=== PATIENT | male | born 1960 | race Caucasian/White ===

== ENCOUNTER → 2020-07-07 | Outpatient (CLI) | payer BC ==
[~2020-07-07] MED LIST: ALBU2.5V8 INH; ALLO300T PO; BUDE10.2 IH; IPRA3AMP29 NEB; KRIL1CAP10 PO; MULT-658 PO; ONDA4TAB7 PO; PANT40TA77 PO; PROC10TA57 PO
[2020-07-07 16:07] LABS: BASO % 1 % (0-3); EOS % 0 % (0-3); HEMATOCRIT 41.1 % (39.0-53.0); HEMOGLOBIN 13.9 g/dL (13.0-17.5); LYMPH % 16 % (24-48); MEAN CORPUSCULAR HEMOGLOBIN 31 pg (25-35); MEAN CORPUSCULAR HGB CONC 34 g/dL (31-37); MEAN CORPUSCULAR VOLUME 93 fL (79-100); MONO # 0.1 x10^3/uL (0.0-1.1); MONO % 1 % (0-9); NEUT # 4.9 x10^3/uL (1.8-7.7); NEUT % 82 % (31-73); PLATELET COUNT 127 x10^3/uL (140-400); RED BLOOD COUNT 4.41 x10^6/uL (4.30-5.70); RED CELL DISTRIBUTION WIDTH 13.7 % (11.5-14.5)
[2020-07-07 16:27] LABS: CALCIUM 8.9 mg/dL (8.5-10.1); CREATININE 0.8 mg/dL (0.7-1.3); GFR 98.9; POTASSIUM 4.7 mmol/L (3.5-5.1)
[2020-07-07 16:33] LABS: ALBUMIN 3.3 g/dL (3.4-5.0); ALBUMIN/GLOBULIN RATIO 1.2 (1.0-1.7); TOTAL BILIRUBIN 0.6 mg/dL (0.2-1.0); TOTAL PROTEIN 6.1 g/dL (6.4-8.2)
== END ==
LOC: ONCLAB 15:31
PROVIDERS: ATTEND Internal Medicine Hematology & Oncology
DX: C34.02 Malignant neoplasm of left main bronchus (principal)
CPT/HCPCS: 36415; 80053; 85025

== ENCOUNTER → 2020-07-11 | Outpatient (CLI) | payer BC ==
--- NOTE | 2020-07-11 18:41 | RAD ---
EXAM: NM PET/CT SKULL BASE TO MID THIGH EXAM DATE: 07/11/2020 INDICATION: Lung cancer, status post first cycle of chemotherapy. Initial staging. RADIOPHARMACEUTICAL: 15.28 mCi of F-18 Fluorodeoxyglucose (FDG) I.V. via the left antecubital fossa. TECHNIQUE: Patient weight: 230 pounds. Following at least four-hour fasting, the patient's blood gluc ose was 119 mg/dl. Approximately 1 hour after administration of FDG, overlapping emission scanning w as performed from the orbital meatal line through the pelvis. A low-dose CT was performed for attenu ation correction purposes and anatomic localization. Fused images of PET and CT were reviewed. Any s tandardized uptake values (SUV) reported are maximum values within a volume region of interest, expre ssed in gm/ml. COMPARISON: No relevant comparisons currently available FINDINGS: PET: In the head and neck, activity in the left nasopharynx to a max SUV of 6.55 is identified, correlatin g with asymmetric fullness in the torus tubarius. In the chest, prevascular bulky lymphadenopathy is present to max SUV of 4.47. Left hilar adenopathy to max SUV of 5.03 is also noted. It is possible a posterior left upper lobe ines ng mass abutting the mediastinum and hilum is present but lack of IV contrast and respiratory motion artifact limits assessment. A paraesophageal lymph node between the descending thoracic aorta and descending thoracic esophagus s hows FDG uptake to max SUV of 3.91 (image 155 axial series 3, image 63 image series 603). Focal uptake in the posterior right 10th rib (image 80 of series 603) to max SUV of 2.80 shows no tameka ar CT correlate of either a fracture or an osteolytic or osteoblastic lesion. Correlate for symptoms and reassessed on follow-up. In the abdomen and pelvis, uptake in the bilateral inguinal lymph nodes is present, most conspicuousl y in the superficial right inguinal lymph node (image 150 of series 603) showing a max SUV of 3.73. O n the left, deep inguinal lymph nodes show max SUV of 2.71 (image 157 series 603). CT: In the head and neck, arteriovascular calcifications are present with dense calcifications in the lef t greater than right bilateral carotid bifurcations. In the chest, there is asymmetric mild volume loss in the left lung with prominence of the pulmonary interstitium, likely reflection of pulmonary vascular congestion although lymphangitic tumoral spread can appear similar. Ovoid nodule in the subcutaneous soft tissues in a pattern suggestive of a sebac eous cyst is present at the T7 level. In the abdomen and pelvis, scattered arterial vascular calcifications and prostatic enlargement are n oted. Incidental note is made of a 9 mm left para-aortic lymph node adjacent to the medial limb of th e left adrenal gland (image 226 of series 3) that shows no abnormal FDG activity on properly register ed attenuation correction fused axial images (image 91 of series 603). No acute or aggressive appearing osseous lesions. IMPRESSION: 1. Bulky ignacia disease in the mediastinum and left hilum show respective abnormal FDG uptake to max S UV of 4.47 of 5.03. A discrete lung mass is not clearly apparent on noncontrast CT but is not exclude d. Correlation with postcontrast imaging could be helpful. No evidence of abdominal or pelvic metasta tic disease. 2. Asymmetric fullness to the left nasopharyngeal soft tissues with FDG uptake to max SUV of 6.55. Re commend correlation with clinical exam. Electronically signed by: Karla Miranda MD (07/11/2020 6:38 PM) [id number]
== END ==
LOC: PETSC 10:03
PROVIDERS: ATTEND Internal Medicine Hematology & Oncology
DX: C34.02 Malignant neoplasm of left main bronchus (principal); R91.8 Other nonspecific abnormal finding of lung field
CPT/HCPCS: 78815; A9552

== ENCOUNTER 2020-07-15 06:58 | Outpatient (CLI) | payer BC ==
[~2020-07-15] VITALS: Ht 188 cm; Wt 104.3 kg
[2020-07-15] VITALS (7 sets, daily range): BP systolic 112–136; BP diastolic 59–81
[2020-07-15 07:23] LABS: BASO % 1 % (0-3); EOS % 2 % (0-3); HEMATOCRIT 39.9 % (39.0-53.0); HEMOGLOBIN 13.5 g/dL (13.0-17.5); LYMPH # 1.8 x10^3/uL (1.0-4.8); LYMPH % 63 % (24-48); MEAN CORPUSCULAR HEMOGLOBIN 32 pg (25-35); MEAN CORPUSCULAR HGB CONC 34 g/dL (31-37); MEAN CORPUSCULAR VOLUME 93 fL (79-100); MONO # 0.3 x10^3/uL (0.0-1.1); MONO % 11 % (0-9); NEUT # 0.7 x10^3/uL (1.8-7.7); NEUT % 24 % (31-73); PLATELET COUNT 125 x10^3/uL (140-400); RED BLOOD COUNT 4.28 x10^6/uL (4.30-5.70); RED CELL DISTRIBUTION WIDTH 13.9 % (11.5-14.5); WHITE BLOOD COUNT 2.9 x10^3/uL (4.0-11.0)
[2020-07-15 07:37] LABS: PROTHROMBIN TIME PATIENT 12.2 SEC (11.7-14.0)
[2020-07-15] MEDS ORDERED: MULT-658 PO (08:10)
[2020-07-15] MEDS ORDERED: ALBU2.5V8 INH (08:10)
[2020-07-15] MEDS ORDERED: IPRA3AMP29 NEB (08:10)
[2020-07-15] MEDS ORDERED: KRIL1CAP10 PO (08:10)
[2020-07-15] MEDS ORDERED: ALLO300T PO (08:10)
[2020-07-15] MEDS ORDERED: BUDE10.2 IH (08:10)
[2020-07-15] MEDS ORDERED: PANT40TA77 PO (08:10)
[2020-07-15] MEDS ORDERED: ONDA4TAB7 PO (08:10)
[2020-07-15] MEDS ORDERED: PROC10TA57 PO (08:10)
[2020-07-15] MEDS ORDERED: LIDOCAINE 2%/EPI 1:100,000 20 ML VIAL. ONE (08:19)
[2020-07-15 08:27] LABS: ALBUMIN 3.4 g/dL (3.4-5.0); ALBUMIN/GLOBULIN RATIO 0.9 (1.0-1.7); CALCIUM 9.4 mg/dL (8.5-10.1); CREATININE 0.9 mg/dL (0.7-1.3); GFR 86.4; POTASSIUM 3.9 mmol/L (3.5-5.1); TOTAL BILIRUBIN 0.2 mg/dL (0.2-1.0); TOTAL PROTEIN 7.1 g/dL (6.4-8.2)
[2020-07-15 09:02] LABS: % BANDS 6 % (0-9); % EOS 4 % (0-5); % LYMPHS 62 % (24-48); % MONOS 11 % (0-10); % SEGS 17 % (35-66); PLT ESTIMATE DECREASED (ADEQUATE)
[2020-07-15] MEDS ORDERED: MIDAZOLAM HCL/PF 2 MG/2 ML VIAL. ONE (09:03)
[2020-07-15] MEDS ORDERED: fentaNYL PF VIAL 100 MCG/2 ML VIAL ONE (09:03)
[2020-07-15] MEDS ORDERED: fentaNYL PF VIAL 100 MCG/2 ML VIAL IV ONE (09:30)
[2020-07-15] MEDS ORDERED: LIDOCAINE 1%/EPI 1:100,000 20 ML VIAL. INJ ONE (09:30)
[2020-07-15] MEDS ORDERED: MIDAZOLAM HCL/PF 2 MG/2 ML VIAL. IV ONE (09:30)
--- NOTE | 2020-07-15 09:40 | PDOC ---
MODERATE SEDATION ASSESSMENT RISKS/ALTERNATIVES Risks/Alternatives Risks and alternatives of this type of sedation and procedure discussed with: RISK/ALTERNATIVES: Patient H & P ON CHART H & P H & P on chart and reviewed for co-morbid conditions and appropriate labs. H&P ON CHART: Yes STATUS PREG STATUS ASSESSED: Yes MEDS/ALLERGIES REVIEWED Meds/Allergies Reviewed Medications and Allergies including time and route of recently administered narcotics and sedatives. MEDS/ALLERGIES REVIEWED: Yes ASA RATING ASA RATING: III AIRWAY ASSESSMENT Airway Assessment Airway patency, oral function limitations, presence of caps, crowns, dentures, partials, and ability to extend neck assessed. AIRWAY ASSESSMENT: Yes MALLAMPATI SCORE MALLAMPATI SCORE: II PRE-SEDATION ASSESSMENT PRE-SEDATION ASSESSMENT: Yes JUDAH DENSON MD Jul 15, 2020 09:39
--- NOTE | 2020-07-15 09:41 | PDOC ---
Exam Administrative Hearing Officer Administrative Hearing Officer Yudi Butadiene Converter Helper Butadiene Converter Helper Jaime Pre-Procedure Diagnosis Pre-Procedure Diagnosis Small cell lung cancer Post-Procedure Diagnosis Post-Procedure Diagnosis same Procedure Performed Procedure Performed port placement, RIJ Type of Anesthesia Type of Anesthesia Mod Sed Estimated Blood Loss EBL: 10 Specimens Specimans None Drain/Tubes Drains/Tubes Right IJ Bard Powerport with [place] tip Condition of Patient Condition of Patient Stable Disposition Disposition To [facility] for recovery JUDAH DENSON MD Jul 15, 2020 09:41
--- NOTE | 2020-07-15 11:05 | NUR ---
Pt A&O x 4. denies pain, nausea or dizziness. VSS except that his SPO2 is about 87. pt does wear O2 2l at home prn. discussed w/ pt the need to wear his O2 when he gets home for a couple hours till the sedation completely wears off. tolerating po well. ambulated to BR w/O problem. d/c instructions given. questions answered. out to vehicle per w/c-his niece to drive him home
--- NOTE | 2020-07-15 12:52 | RAD ---
Procedure: Ultrasound and fluoroscopically guided placement of right internal jugular power port.. 07/15/2020 10:48 AM Clinical Indication: Chemotherapy, Lung CA Sedation: Conscious sedation was administered for 27 minutes. The patient was monitored by a qualified independent observer throughout the time of sedation. Please refer to the medical record for exact doses of medications utilized to achieve moderate sedation. Fluoroscopy time: 0.3 minutes Dose area product: 1 Gycm2 Consent: The procedure was explained in its entirety to the patient or the patients designated advertising representative by a member of the treatment team, including a discussion of the risks, benefits and commonly accepted alternatives to the procedure, as well as the expected consequences of no therapy whatsoever. Discussion of the risks included, but was not limited to, those that are most frequent and those that are rare but possibly severe or life-threatening, as well as the possibility of unforeseen complications. Technique and Findings: All elements of maximal sterile barrier technique including the use of a cap, mask, sterile gown, sterile gloves, large sterile sheet, appropriate hand hygiene, and 2% chlorhexidine for cutaneous antisepsis (or acceptable alternative antiseptic per current guidelines) were followed for this procedure.Following informed consent, and a timeout procedure, the patient was prepped and draped in the usual sterile fashion. Ultrasound interrogation of the right neck revealed patency and compressibility of the right internal jugular vein. A 21-gauge micropuncture was then used to gain access to this vein under ultrasound guidance. A hard copy ultrasound image was recorded. The needle was exchanged over a wire for a sheath. A 1 inch incision was made several centimeters inferior to the venotomy site. A catheter was tunneled from this site dermatotomy site in the neck. Catheter was advanced through peel-away sheath such that its tip was in the proximal right atrium with the patient supine. The catheter was trimmed to length and connected to the port reservoir. The port was found to flush and aspirate normally. The wound was closed in layers using 4-0 Vicryl suture. Sterile dressings were applied. Impression: Successful ultrasound and fluoroscopically guided placement of a right internal jugular PowerPort
== END 2020-07-15 11:10 | disposition home or self-care (01) ==
LOC: INTRAD 06:58
PROVIDERS: ATTEND Internal Medicine Hematology & Oncology
DX: Z45.2 Encounter for adjustment and management of vascular access device (principal); C34.02 Malignant neoplasm of left main bronchus; J44.9 Chronic obstructive pulmonary disease, unspecified; K21.9 Gastro-esophageal reflux disease without esophagitis; M19.90 Unspecified osteoarthritis, unspecified site; F17.210 Nicotine dependence, cigarettes, uncomplicated; Z87.440 Personal history of urinary (tract) infections; Z79.899 Other long term (current) drug therapy; Z98.890 Other specified postprocedural states; Z88.0 Allergy status to penicillin
CPT/HCPCS: 36415; 36561; 76937; 77001; 80053; 85007; 85025; 85610; 99152; 99153; C1751; C1892; J0690; J2250; J3010; J3490